=== PATIENT | female | born 1950 | race Caucasian/White ===

== ENCOUNTER 2017-01-22 11:02 | Outpatient (CLI) | payer MEDICARE, OTHER | END 2017-01-22 23:59 | DX: I10 Essential (primary) hypertension (principal); E11.9 Type 2 diabetes mellitus without complications; E78.9 Disorder of lipoprotein metabolism, unspecified; E03.9 Hypothyroidism, unspecified ==

== ENCOUNTER 2017-07-23 10:04 | Outpatient (CLI) | payer MEDICARE, OTHER ==
[2017-07-23 20:15] LABS: ALBUMIN/GLOBULIN RATIO 1.2 (1.0-2.2); BILIRUBIN,TOTAL 1.5 mg/dL (0.2-1.0); BUN - BLOOD UREA NITROGEN 13 mg/dL (6-20); CARBON DIOXIDE - CO2 28 mmol/L (21-32); CHLORIDE 99 mmol/L (101-111); CHOL/HDL RATIO 3.7 (<4.4); CHOLESTEROL 227 mg/dL; CREATININE 0.8 mg/dL (0.4-1.0); GFR - MDRD 72 (>89); GLUCOSE 141 mg/dL (70-100); HDL CHOLESTEROL 61 mg/dL; LDL/HDL RATIO 2.4 (<4.4); POTASSIUM 3.5 mmol/L (3.5-5.0); SODIUM 136 mmol/L (135-145); TRIGLYCERIDES 83 mg/dL; VLDL CHOLESTEROL 17 mg/dL
[2017-07-23 20:41] LABS: HEMOGLOBIN A1C 0.72 g/dL
== END 2017-07-23 10:05 | disposition home or self-care (01) ==
LOC: LAB.WCP 10:04
PROVIDERS: ATTEND Family Medicine
DX: E11.9 Type 2 diabetes mellitus without complications (principal)
CPT/HCPCS: 36415; 80053; 80061; 82043; 83036

== ENCOUNTER 2017-08-17 07:51 | Outpatient (CLI) | payer MEDICARE, OTHER ==
--- NOTE | 2017-08-18 15:27 | Mammography Report ---
DIGITAL SCREENING MAMMOGRAM: 08/17/2017 CLINICAL INDICATION: A 66-year-old nulliparous patient, for screening. COMPARISON: 07/2016, 01/2015, 07/2012, 08/2011. TECHNIQUE: Routine CC and MLO projections were obtained of the breasts. FINDINGS: The breasts again demonstrate scattered fibroglandular densities bilaterally. Punctate, ty pically benign calcifications are present. No suspicious masses, clustered microcalcifications, or re gions of architectural distortion are identified. IMPRESSION: BENIGN FINDINGS. RECOMMENDATION: ROUTINE ANNUAL SCREENING UNLESS OTHERWISE CLINICALLY INDICATED. BIRADS CATEGORY 2-BENIGN FINDINGS. STANDARD QUALIFYING STATEMENTS 1. This examination was reviewed with the aid of Computer-Aided Detection (CAD). 2. A negative or benign imaging report should not delay biopsy if clinically suspicious findings are present. Consider surgical consultation if warranted. More than 5% of cancers are not identified by i maging. 3. Dense breasts may obscure an underlying neoplasm. JOB #: [id number] EXT JOB #:[id number]
== END 2017-08-17 07:52 | disposition home or self-care (01) ==
LOC: DI 07:51
PROVIDERS: ATTEND Family Medicine
DX: Z12.31 Encounter for screening mammogram for malignant neoplasm of breast (principal)
CPT/HCPCS: 77067

== ENCOUNTER 2017-08-17 07:52 | Outpatient (CLI) | payer MEDICARE, OTHER ==
--- NOTE | 2017-08-17 15:59 | DEXA Report ---
DEXA SCAN: 08/17/2017 CLINICAL INDICATION: Postmenopausal. TECHNIQUE: Dual energy x-ray absorptiometry (DXA) was performed on a [employer] system. Regions measured are the AP spine, femoral neck, and, if needed, forearm. COMPARISON: None. In accordance with the International Society for Clinical Densitometry (ISCD) guidelines, data from previous exams may be reanalyzed using current recommendations and techniques. This is done to allow a more accurate basis for comparison with the current study. FINDINGS Lumbar Spine Data As Follows: REGION BMD (g/cm/cm) T-SCORE Z-SCORE L1 1.546 3.5 3.9 L2 1.666 3.9 4.3 L3 1.772 4.8 5.2 L4 1.887 5.7 6.2 TOTAL 1.725 4.5 5.0 NOTE: All evaluable vertebrae are used for classification. Hip Data As Follows: REGION BMD (g/cm/cm) T-SCORE Z-SCORE Neck 1.248 1.5 2.3 TOTAL 1.424 3.3 3.8 NOTE: The femoral neck or total proximal femur, whichever is lowest, is used for classification. IMPRESSION: THE WHO CLASSIFICATION BASED ON THE INTERNATIONAL REFERENCE STANDARD IS NORMAL. FRACTURE RISK: NOT INCREASED. RECOMMENDATION: Patients with diagnosis of osteoporosis or osteopenia should have regular bone mineral density assessment. For those eligible for Medicare, routine testing is allowed once every 2 years. Testing frequency can be increased for patients who have rapidly progressing disease or for those who are receiving medical therapy to restore bone mass. COMMENT: World Health Organization (WHO) definitions for osteoporosis and osteopenia: NORMAL BMD: T-score at -1.0 or higher, fracture risk is low. OSTEOPENIA BMD: T-score between -1.0 and -2.5, fracture risk is increased. OSTEOPOROSIS BMD: T-score at -2.5 or lower, fracture risk high. National Osteoporosis Foundation recommends: 1. Obtain adequate dietary calcium (at least 1200 mg per day) and vitamin D (400 -800 international units per day). 2. Participate, as appropriate, in regular weightbearing and muscle- strengthening exercise. 3. Avoid tobacco use and reduce alcohol and caffeine intake. 4. For more detailed information see the website at www.NOF.org. MTDD
== END 2017-08-17 07:53 | disposition home or self-care (01) ==
LOC: DI 07:52
PROVIDERS: ATTEND Family Medicine
DX: Z78.0 Asymptomatic menopausal state (principal)
CPT/HCPCS: 77080

== ENCOUNTER 2018-07-20 10:41 | Outpatient (CLI) | payer MEDICARE, OTHER ==
[2018-07-20 14:23] LABS: ALBUMIN 3.9 g/dL (3.2-5.5); ALBUMIN/GLOBULIN RATIO 1.2 (1.0-2.2); ALKALINE PHOSPHATASE 37 IU/L (42-121); ALT ALANINE AMINOTRANSFERASE 20 IU/L (10-60); AST ASPARTATE AMINOTRANSFERASE 20 IU/L (10-42); BILIRUBIN,TOTAL 1.5 mg/dL (0.2-1.0); BUN - BLOOD UREA NITROGEN 17 mg/dL (6-20); CALCIUM 9.4 mg/dL (8.5-10.3); CARBON DIOXIDE - CO2 26 mmol/L (21-32); CHLORIDE 100 mmol/L (101-111); CREATININE 0.7 mg/dL (0.4-1.0); GFR - MDRD 83 (>89); GLUCOSE 128 mg/dL (70-100); SODIUM 135 mmol/L (135-145); TOTAL PROTEIN 7.1 g/dL (6.7-8.2)
[2018-07-20 14:37] LABS: HB2 TOTAL 14.3 g/dL; HEMOGLOBIN A1C 0.63 g/dL; HEMOGLOBIN A1C % 6.2 % (4.6-6.2)
== END 2018-07-20 10:42 | disposition home or self-care (01) ==
LOC: LAB.WCP 10:41
PROVIDERS: ATTEND Family Medicine
DX: E11.9 Type 2 diabetes mellitus without complications (principal)
CPT/HCPCS: 36415; 80053; 83036; 84443

== ENCOUNTER 2019-07-13 08:19 | Outpatient (CLI) | payer MEDICARE, OTHER ==
--- NOTE | 2019-07-13 15:32 | Ultrasound Report ---
Reason: HYPERBILIRUBINEMIA Procedure Date: 07/13/2019 Accession Number: [id number] / [id number] Procedure: US - Abdomen Complete CPT Code: FULL RESULT: EXAM: ABDOMEN ULTRASOUND EXAM DATE: 07/13/2019 09:34 AM. CLINICAL HISTORY: Hyperbilirubinemia. COMPARISON: None. TECHNIQUE: Real-time scanning was performed with static images obtained. FINDINGS: Liver: The liver is moderately echogenic diffusely. No evidence for cirrhosis or mass lesion. The right lobe measures 16.0 cm. Main portal vein flow: Hepatopetal. Gallbladder: The gallbladder appears completely packed with stones limiting evaluation. The anterior wall is visualized and appears upper normal in thickness measuring up to approximately 3 mm. Negative sonographic Starr sign. Biliary System: Common bile duct measures 6 mm. No intrahepatic or extrahepatic ductal dilatation. Pancreas: Visualized portion is unremarkable. Kidneys: Right: 11.1 cm longitudinally. Normal. No contour-deforming mass, stones, or hydronephrosis. Left: 10.7 cm longitudinally. No contour-deforming mass, stones, or hydronephrosis. A mid left renal cyst measures 1.4 cm. Spleen: 11.3 cm. Normal in size and echotexture. Aorta and Inferior Vena Cava: Unremarkable. Other: None. IMPRESSION: 1. Gallbladder completely packed with stones but without clear evidence for acute cholecystitis. Mild chronic cholecystitis not excluded. 2. Moderately fatty infiltrated liver. 3. No biliary ductal dilatation or stones visualized. RADIA
== END 2019-07-13 08:20 | disposition home or self-care (01) ==
LOC: DI 08:19
PROVIDERS: ATTEND Family Medicine
DX: K80.20 Calculus of gallbladder without cholecystitis without obstruction (principal); K76.0 Fatty (change of) liver, not elsewhere classified
CPT/HCPCS: 76700

== ENCOUNTER 2019-08-11 10:12 | Outpatient (CLI) | payer MEDICARE, OTHER ==
--- NOTE | 2019-08-14 09:30 | Mammography Report ---
Reason: SCREENING MAMMO Procedure Date: 08/11/2019 Accession Number: [id number] / [id number] Procedure: SURINDER - Screening Mammo w/Steve CPT Code: Final Report FULL RESULT: EXAM: Screening Mammo w/Steve DATE: 08/11/2019 10:45 AM CLINICAL HISTORY: Routine screening. No reported personal history of breast cancer. Family history breast cancer paternal grandmother age 40. TECHNIQUE: (B) - Bilateral CC and MLO views were obtained. COMPARISON: 08/17/2017 through 08/13/2011. PARENCHYMAL PATTERN: (A) - The breasts demonstrate scattered fibroglandular densities bilaterally. FINDINGS: Bilateral breasts: There are no suspicious masses, calcifications, or areas of distortion. Long-term stable focal asymmetry upper outer left breast middle depth. IMPRESSION: Benign findings. BI-RADS category 2. RECOMMENDATION: (ANNUAL) - Recommend routine annual screening mammography. BI-RADS CATEGORY: (2) - Benign Findings. STANDARD QUALIFYING STATEMENTS: 1. This examination was not reviewed with the aid of Computer-Aided Detection (CAD). 2. A negative or benign imaging report should not preclude biopsy if clinically suspicious findings are present. 3. Dense breasts may obscure an underlying neoplasm. 4. This examination was reviewed with the aid of 3D breast imaging (tomosynthesis).
== END 2019-08-11 10:13 | disposition home or self-care (01) ==
LOC: DI 10:12
DX: Z12.31 Encounter for screening mammogram for malignant neoplasm of breast (principal); Z80.3 Family history of malignant neoplasm of breast
CPT/HCPCS: 77063; 77067

== ENCOUNTER 2019-08-17 14:11 | Outpatient (CLI) | payer MEDICARE, OTHER | END 2019-08-17 14:12 | disposition home or self-care (01) | LOC: RT 14:11 | PROVIDERS: ATTEND Internal Medicine Gastroenterology | DX: E11.9 Type 2 diabetes mellitus without complications (principal); E78.5 Hyperlipidemia, unspecified; I10 Essential (primary) hypertension | CPT/HCPCS: 93005 ==

== ENCOUNTER 2019-08-22 08:36 | Day surgery (SDC) | payer MEDICARE, OTHER ==
[2019-08-22] MEDS ORDERED: LACTATED RINGERS 1,000 ML IV ONE (09:02)
[2019-08-22] MEDS ORDERED: MIDAZOLAM 2 MG/2 ML VIAL IVP ONE ×2 (10:29)
[2019-08-22] MEDS ORDERED: fentaNYL 250 MCG/5 ML VIAL IVP ONE (10:29)
[2019-08-22 11:19] VITALS: BP 139/68
== END 2019-08-22 08:37 | disposition home or self-care (01) ==
LOC: SDS 08:36
PROVIDERS: ATTEND Internal Medicine Gastroenterology
PROC: 0DBN8ZZ Excision of Sigmoid Colon, Via Natural or Artificial Opening Endoscopic (ICD-10-PCS; principal; 2019-08-22 09:45)
DX: Z12.11 Encounter for screening for malignant neoplasm of colon (principal); K63.5 Polyp of colon; K57.30 Diverticulosis of large intestine without perforation or abscess without bleeding; E66.01 Morbid (severe) obesity due to excess calories; E11.9 Type 2 diabetes mellitus without complications; I10 Essential (primary) hypertension; Z79.84 Long term (current) use of oral hypoglycemic drugs; Z80.0 Family history of malignant neoplasm of digestive organs; Z79.899 Other long term (current) drug therapy; Z68.41 Body mass index [BMI] 40.0-44.9, adult
CPT/HCPCS: 45380; J7120

== ENCOUNTER 2021-09-10 11:50 | Outpatient (CLI) | payer MEDICARE ==
[2021-09-10 18:27] LABS: BASOPHILS # (AUTO) 0.1 10^3/uL (0.0-0.1); BASOPHILS % (AUTO) 1.2 %; EOSINOPHILS # (AUTO) 0.1 10^3/uL (0.0-0.7); EOSINOPHILS % (AUTO) 1.8 %; HCT - HEMATOCRIT 42.1 % (37.0-47.0); HGB - HEMOGLOBIN 14.5 g/dL (12.0-16.0); LYMPHOCYTES # (AUTO) 1.6 10^3/uL (1.5-3.5); LYMPHOCYTES % (AUTO) 27.8 %; MEAN CORPUSCULAR HEMOGLOBIN 31.9 pg (27.0-31.0); MEAN CORPUSCULAR HGB CONC 34.4 g/dL (32.0-36.0); MEAN CORPUSCULAR VOLUME 92.7 fL (81.0-99.0); MEAN PLATELET VOLUME 9.2 fL (7.9-10.8); MONOCYTES # (AUTO) 0.4 10^3/uL (0.0-1.0); MONOCYTES % (AUTO) 7.6 %; NEUTROPHILS # (AUTO) 3.5 10^3/uL (1.5-6.6); NEUTROPHILS % (AUTO) 61.4 %; PLT - PLATELET COUNT 241 10^3/uL (130-450); RED BLOOD COUNT 4.54 10^6/uL (4.20-5.40); RED CELL DISTRIBUTION WIDTH 13.6 % (12.0-15.0); WHITE BLOOD COUNT 5.7 x10^3/uL (4.8-10.8)
[2021-09-10 18:47] LABS: CREATININE,URINE 264.3 mg/dL; MICROALBUM/CREATININE RATIO,UR 10.6 ug/mg (<30.0); MICROALBUMIN,URINE 2.8 mg/dL (0-300.0)
[2021-09-10 18:57] LABS: ALBUMIN 3.9 g/dL (3.2-5.5); ALBUMIN/GLOBULIN RATIO 1.1 (1.0-2.2); ALKALINE PHOSPHATASE 45 IU/L (42-121); ALT ALANINE AMINOTRANSFERASE 13 IU/L (10-60); AST ASPARTATE AMINOTRANSFERASE 16 IU/L (10-42); BILIRUBIN,TOTAL 1.3 mg/dL (0.2-1.0); BUN - BLOOD UREA NITROGEN 19 mg/dL (6-20); CALCIUM 9.7 mg/dL (8.5-10.3); CARBON DIOXIDE - CO2 27 mmol/L (21-32); CHLORIDE 100 mmol/L (101-111); CHOL/HDL RATIO 4.1 (<4.4); CHOLESTEROL 336 mg/dL; CREATININE 0.8 mg/dL (0.4-1.0); GFR - MDRD 71 (>89); GLUCOSE 110 mg/dL (70-100); HDL CHOLESTEROL 81 mg/dL; LDL CHOLESTEROL,CALCULATED 242 mg/dL; POTASSIUM 3.7 mmol/L (3.5-5.0); SODIUM 137 mmol/L (135-145); TOTAL PROTEIN 7.4 g/dL (6.7-8.2); TRIGLYCERIDES 64 mg/dL; VLDL CHOLESTEROL 13 mg/dL
[2021-09-10 19:03] LABS: THYROID STIMULATING HORMONE 5.89 uIU/mL (0.34-5.60)
[2021-09-10 20:10] LABS: FREE T4 (FREE THYROXINE) 0.95 ng/dL (0.58-1.64)
[2021-09-10 21:06] LABS: ESTIMATED AVERAGE GLUCOSE 128 mg/dL (70-100); HEMOGLOBIN A1c% 6.1 % (4.27-6.07)
== END 2021-09-10 11:51 | disposition home or self-care (01) ==
LOC: LAB.N 11:50
PROVIDERS: ATTEND Family Medicine
DX: E11.9 Type 2 diabetes mellitus without complications (principal); E03.9 Hypothyroidism, unspecified
CPT/HCPCS: 36415; 80053; 80061; 82043; 82570; 83036; 83721; 84439; 84443; 85025

== ENCOUNTER 2021-09-10 12:01 | Outpatient (CLI) | payer MEDICARE ==
--- NOTE | 2021-09-10 16:37 | XRAY Report ---
PROCEDURE: Knee 4 View RT INDICATIONS: R KNEE PX TECHNIQUE: 4 views of the right knee(s) were acquired. COMPARISON: None. FINDINGS: BONES/JOINT: No acute, displaced fracture or dislocation. Small suprapatellar joint effusion. Advance d narrowing of the lateral compartment joint space loss with osteophytosis and sclerosis of the oppos ing articular surfaces. The medial and patellofemoral compartment joint spaces are essentially mainta ined. Tricompartment and intercondylar region osteophytosis. SOFT TISSUES: No significant abnormality. IMPRESSION: 1.Advanced lateral compartment osteoarthrosis. Reviewed by: Juarez Swain MD on 09/10/2021 4:35 PM PST Approved by: Juarez Swain MD on 09/10/2021 4:35 PM [facility] Station ID: [id number]
== END 2021-09-10 12:02 | disposition home or self-care (01) ==
LOC: DI.N 12:01
PROVIDERS: ATTEND Family Medicine
DX: M17.11 Unilateral primary osteoarthritis, right knee (principal); E11.9 Type 2 diabetes mellitus without complications; E03.9 Hypothyroidism, unspecified
CPT/HCPCS: 36415; 80053; 80061; 82043; 82570; 83036; 83721; 84439; 84443; 85025

== ENCOUNTER 2022-04-26 09:13 | Emergency (ER) | payer MEDICARE ==
--- NOTE | 2022-04-26 09:47 | ED Physician Documentation ---
PD HPI ABD PAIN - Stated complaint Stated Complaint: ABD PAIN X 4 DAYS - Chief complaint Chief Complaint: Abd Pain - History obtained from History obtained from: Patient - History of Present Illness Timing - onset: How many days ago (4) Timing - duration: Days (4) Timing - details: Abrupt onset, Still present, Waxing and waning Quality: Cramping, Aching, Pain Location: All over / everywhere (pain location has roamed, with current pain this morning mid abd to lower. Was upper abd to begin.) Improved by: Laying still, BM. No: Eating Worsened by: Moving. No: Eating Associated symptoms: Nausea, Vomiting, Diarrhea (watery without blood/mucous.), Loss of appetite. No: Dysuria, Hematuria Similar symptoms before: Has not had sx before Recently seen: Not recently seen Review of Systems Constitutional: denies: Fever, Chills, Myalgias Nose: denies: Rhinorrhea / runny nose, Congestion Throat: denies: Sore throat Cardiac: denies: Chest pain / pressure Respiratory: denies: Cough GI: reports: Abdominal Pain, Nausea, Vomiting (few times the first 2 days, now just nauseated.), Diarrhea. denies: Constipation, Bloody / black stool : denies: Dysuria Skin: denies: Rash, Lesions Musculoskeletal: denies: Back pain Neurologic: denies: Generalized weakness, Focal weakness, Numbness, Near syncope, Altered mental status, Headache PD PAST MEDICAL HISTORY - Past Medical History Cardiovascular: Hypertension Respiratory: None Endocrine/Autoimmune: Type 2 diabetes, HyPOthyroidism GI: GERD : None HEENT: None Psych: Claustrophobia Musculoskeletal: None Derm: Rosacea - Past Surgical History General: Colonoscopy Ortho: Other - Present Medications Home Medications: Ambulatory Orders Medication Instructions Recorded Confirmed Ascorbic Acid [Vitamin C] 1,000 mg PO DAILY 01/02/16 04/26/22 Cholecalciferol (Vitamin D3) 1,000 unit PO DAILY 01/02/16 04/26/22 [Vitamin D] Losartan Potassium 25 mg PO DAILY 01/02/16 04/26/22 Diphenoxylate/Atropine [Lomotil] 1 each PO QID PRN #12 tablet 04/26/22 HYDROcod/ACETAM 5/325 [[place] 5/325] 1 ea PO Q6H PRN #12 tablet 04/26/22 Ondansetron Odt [Zofran] 4 mg TL Q6H PRN #10 tablet 04/26/22 - Allergies Allergies/Adverse Reactions: Allergies Allergy/AdvReac Type Severity Reaction Status Date / Time Iodine and Iodide Containing Allergy Nausea Verified 04/26/22 09:27 Produc Sulfa (Sulfonamide Allergy Rash Verified 04/26/22 09:27 Antibiotics) PD ED PE NORMAL - Vitals Vital signs reviewed: Yes - General General: Alert and oriented X 3, No acute distress, Well developed/nourished - HEENT HEENT: Pharynx benign - Neck Neck: Supple, no meningeal sign, No adenopathy - Cardiac Cardiac: RRR, No murmur - Respiratory Respiratory: Clear bilaterally - Abdomen Abdomen: Normal bowel sounds, Soft, Non distended, No organomegaly, Other (tender mid to lower abd more to the right. No percussion nor rebound tenderness. ) - Female Female : Deferred - Rectal Rectal: Deferred - Back Back: No CVA TTP - Derm Derm: Normal color, Warm and dry - Extremities Extremities: Normal ROM s pain, No edema, No calf tenderness / cord - Neuro Neuro: Alert and oriented X 3, No motor deficit, Normal speech Results - Vitals Vitals: Vital Signs - 24 hr 04/26/22 04/26/22 09:24 14:13 Temperature 37.1 C Heart Rate 110 H 98 Respiratory 19 17 Rate Blood Pressure 138/69 H 150/80 H O2 Saturation 96 98 Oxygen O2 Source Room air - Labs Labs: Laboratory Tests 04/26/22 04/26/22 04/26/22 09:50 09:50 09:50 WBC 13.2 H RBC 4.38 Hgb 13.6 Hct 40.3 MCV 92.0 MCH 31.1 H MCHC 33.7 RDW 14.1 Plt Count 264 MPV 8.7 Neut # (Auto) 11.7 H Lymph # (Auto) 0.7 L Traill # (Auto) 0.6 Eos # (Auto) 0.0 Baso # (Auto) 0.0 Absolute Nucleated RBC 0.00 Nucleated RBC % 0.0 Sodium 138 Potassium 3.3 L Chloride 98 L Carbon Dioxide 26 Anion Gap 14.0 H BUN 28 H Creatinine 1.1 H Estimated GFR (MDRD) 49 L Glucose 154 H Calcium 9.8 Total Bilirubin 3.4 H AST 27 ALT 24 Alkaline Phosphatase 77 Total Protein 7.9 Albumin 3.4 Globulin 4.5 H Albumin/Globulin Ratio 0.8 L Lipase 25 Urine Color DARK YELLOW Urine Clarity HAZY Urine pH Ur Specific Goodell Urine Protein Urine Glucose (UA) NEGATIVE Urine Ketones Urine Occult Blood Urine Nitrite Urine Bilirubin NEGATIVE Urine Urobilinogen Ur Leukocyte Esterase NEGATIVE Urine RBC 0-5 Urine WBC 0-3 Ur Squamous Epith Cells RARE Squamous Urine Bacteria Moderate H Urine Casts 0-2 Granular Casts Urine Mucus Moderate Strands Ur Microscopic Review INDICATED Urine Culture Comments NOT INDICATED - Rads (name of study) abd/pelvic CT Radiology: Prelim report reviewed (gallstones with one in neck. No signs of cholecystitis. left ovarian cyst. IUD present. ), See rad report abd U/S Radiology: Prelim report reviewed (gallstones without cholecystitis. CBD 7 mm, slightly enlarged.No stones visible. ), See rad report PD MEDICAL DECISION MAKING - ED course Complexity details: reviewed results (CT showing gallstones without obvious inflammatory changes. Recommeded U/S. U/S showing stones without signs of cholecystitis. ovarian cyst, unusual for age. IUD in place which patient thought was not still present, surprise to her. ), re-evaluated patient (her pain is significantly improved to minimal with meds in ER. ), considered differential (consider gallbladder process, diverticulitis, central appy, other process. ), d/w patient Departure - Departure Disposition: 01 Home, Self Care Clinical Impression: Nausea vomiting and diarrhea, Gallstones Abdominal pain Qualifiers: Abdominal location: generalized Qualified Code(s): R10.84 - Generalized abdominal pain Ovarian cyst Qualifiers: Laterality: left Qualified Code(s): N83.202 - Unspecified ovarian cyst, left side Condition: Stable Record reviewed to determine appropriate education?: Yes Follow-Up: Raimundo Velazquez MD [Provider Admit Priv/Credential] - Prescriptions: Diphenoxylate/Atropine [Lomotil] 1 each PO QID PRN #12 tablet PRN Reason: Diarrhea HYDROcod/ACETAM 5/325 [[place] 5/325] 1 ea PO Q6H PRN #12 tablet PRN Reason: Pain Ondansetron Odt [Zofran] 4 mg TL Q6H PRN #10 tablet PRN Reason: Nausea / Vomiting Comments: Your CT and ultrasound did show signs of gallstones but no inflammation or swelling of the gallbladder so just incidental finding of gallstones without cholecystitis. This is less likely, unlikely to be the cause of your pain. Also incidental findings on your scan were a left ovarian cyst and an IUD in place. I would suggest following up with gynecology in the near future to discuss any further treatments or evaluations needed for these. At this point I would presume a gastroenteritis ("stomach flu or food related). Small frequent fluids and bland food. Ondansetron if needed for nausea. Lomotil if needed for diarrhea. Add Tylenol if needed for pains or hydrocodone if needed for worse pain. I would anticipate improvement over the next day or 2. Recheck if not improving over the next few days and return if worse. I sent your prescription to [facility] in [place]. I am prescribing a short course of narcotic pain medication for you. These are potentially dangerous and addictive medications that should be used carefully. These medications may constipate you. Take an sqob-iui-rdzdske stool softener such as docusate twice daily with plenty of water while taking these medications. If you go 24 hours without a bowel movement, take mjuy-bcz-pinrmec MiraLAX, per package instructions. Do not drink or drive while taking these medications. If you received narcotic or sedating medications while in the emergency department do not drive for 24 hours. Store this medication in a safe, secure place and out of reach of children. It is a violation of federal law to give or sell this medication to another person or to use in a manner other than prescribed. The ED will not refill narcotic prescriptions, including prescriptions lost or stolen. You can dispose of unwanted medications at the [facility] office or at several pharmacies such as [facility]. Discharge Date/Time: 04/26/22 14:14
[2022-04-26 09:56] LABS: BASOPHILS % (AUTO) 0.3 %; EOSINOPHILS % (AUTO) 0.2 %; HCT - HEMATOCRIT 40.3 % (37.0-47.0); HGB - HEMOGLOBIN 13.6 g/dL (12.0-16.0); LYMPHOCYTES # (AUTO) 0.7 10^3/uL (1.5-3.5); LYMPHOCYTES % (AUTO) 5.2 %; MEAN CORPUSCULAR HEMOGLOBIN 31.1 pg (27.0-31.0); MEAN CORPUSCULAR HGB CONC 33.7 g/dL (32.0-36.0); MEAN PLATELET VOLUME 8.7 fL (7.9-10.8); MONOCYTES # (AUTO) 0.6 10^3/uL (0.0-1.0); MONOCYTES % (AUTO) 4.8 %; NEUTROPHILS # (AUTO) 11.7 10^3/uL (1.5-6.6); PLT - PLATELET COUNT 264 10^3/uL (130-450); RED BLOOD COUNT 4.38 10^6/uL (4.20-5.40); RED CELL DISTRIBUTION WIDTH 14.1 % (12.0-15.0); WHITE BLOOD COUNT 13.2 x10^3/uL (4.8-10.8)
[2022-04-26 10:04] LABS: GLUCOSE, URINE (UA) NEGATIVE (NEGATIVE); LEUKOCYTE ESTERASE, URINE NEGATIVE (NEGATIVE)
[2022-04-26 10:11] LABS: ALBUMIN 3.4 g/dL (3.2-5.5); ALBUMIN/GLOBULIN RATIO 0.8 (1.0-2.2); BILIRUBIN,TOTAL 3.4 mg/dL (0.2-1.0); BILIRUBIN,URINE NEGATIVE (NEGATIVE); CALCIUM 9.8 mg/dL (8.5-10.3); CLARITY,URINE HAZY (CLEAR); CREATININE 1.1 mg/dL (0.4-1.0); ICTOTEST,URINE NEGATIVE; POTASSIUM 3.3 mmol/L (3.5-5.0); TOTAL PROTEIN 7.9 g/dL (6.7-8.2)
[2022-04-26 10:18] LABS: BACTERIA,URINE Moderate /HPF (None Seen); MUCUS,URINE Moderate Strands; RBC,URINE 0-5 /HPF (0-5); SQUAMOUS EPITHELIAL CELL,UR RARE Squamous (<= Few); WBC,URINE 0-3 /HPF (0-5)
[2022-04-26] MEDS ORDERED: KETOROLAC 15 MG/ML VIAL IVP STA (10:36)
[2022-04-26] MEDS ORDERED: ONDANSETRON 4 MG/2 ML VIAL IVP STA (10:36)
[2022-04-26] MEDS ORDERED: SODIUM CHLORIDE 0.9% 1,000 ML IV STA (10:36)
[2022-04-26] MEDS ORDERED: HYDROmorphone 1 MG/ML CARPUJECT IVP STA (10:36)
--- NOTE | 2022-04-26 11:58 | CT Report ---
PROCEDURE: Abdomen/Pelvis WO INDICATIONS: abd pain 3 days, generalized TECHNIQUE: Noncontrast 5 mm thick sections acquired from the diaphragms to the symphysis. 5 mm coronal and sagi ttal reformats were then performed. For radiation dose reduction, the following was used: automated exposure control, adjustment of mA and/or kV according to patient size. COMPARISON: Correlation is made with the prior abdominal ultrasound, 07/13/2019 FINDINGS: Image quality: Excellent. ABDOMEN: Lung bases: Dependent streaky atelectasis versus scarring can be seen. Heart size is normal. Solid organs: Liver and spleen are normal in size. Gallbladder demonstrates layering gallstones. There is also a gallstone seen within the gallbladder n bettie, as demonstrated on series 3 image 28 and on 6 image 24. No pamela gallbladder wall thickening or pericholecystic fluid can be seen. Pancreas is normal in contours. No adrenal nodules. Kidneys are normal in size, without hydronephro sis or nephrolithiasis. Peritoneum and bowel: Unenhanced bowel loops demonstrate normal wall thickness and caliber. No free fluid or air. Nodes and vessels: No retroperitoneal or mesenteric adenopathy by size criteria. Aorta and inferior vena cava are normal in caliber. Miscellaneous: No ventral hernias. PELVIS: Genitourinary: Bladder wall thickness is normal. An IUD is seen at the expected location. Within th e left adnexal region, there is a mildly complex cystic structure that measures up to 5.7 cm. Miscell aneous: No inguinal hernias or adenopathy. Bones: No suspicious bony lesions. No vertebral body compression fractures. Age-appropriate degene rative changes are seen. IMPRESSION: There is a gallstone seen within the gallbladder neck. Additional gallstones are seen la yering dependently within the gallbladder. No additional CT findings of cholecystitis are seen. If cl inically appropriate, please consider a follow-up abdominal ultrasound for further evaluation. There is a complex left ovarian hemorrhagic cyst measuring up to 5.6 cm. In a patient of this age, co ncern is raised for cystic neoplasm. When clinically appropriate, please consider dedicated pelvic ul trasound for further evaluation. Incidental note is made of: IUD Reviewed by: Catracho Robison MD on 04/26/2022 10:57 AM AKDT Approved by: Catracho Robison MD on 04/26/2022 10:57 AM [facility] Station ID: [id number]
[2022-04-26] MEDS ORDERED: DIPHENOX/ATROPINE 2.5/0.025 MG TABLET PO STA (13:44)
[2022-04-26] MEDS ORDERED: HYDROcod/ACETAM 5/325 MG TABLET PO STA (14:00)
[2022-04-26 14:13] VITALS: BP 150/80
--- NOTE | 2022-04-26 14:30 | Ultrasound Report ---
PROCEDURE: Abdomen Limited INDICATIONS: abd pain, CT shows gallstones; suggests US. TECHNIQUE: Real-time focused scanning was performed of the abdomen, with image documentation. COMPARISON: CT abdomen pelvis performed on the same day FINDINGS: The visible proximal pancreas is normal without ductal dilatation. The liver demonstrates a nodular margin and coarse parenchymal echotexture. Portal vein demonstrates appropriate direction o f flow. The gallbladder is nearly filled with echogenic, nonshadowing material. The wall is normal thickness at 2.5 mm. No pericholecystic fluid or sonographic Starr's sign per the technologist. The common beckie t is normal caliber at 6.6 mm maximally. There is a stone in the valencia hepatis measuring 1.0 cm. This is most likely within the cystic duct. No visible choledocholithiasis on this exam. The right kidney has normal size measuring 10.5 cm in length. The cortex is of normal thickness. No h ydronephrosis. IMPRESSION: 1. Cholelithiasis and possible cystic duct stone. 2. No sonographic findings of acute cholecystitis. 3. Coarse hepatic parenchyma suggestive of intrinsic liver disease. Correlate with LFTs. Reviewed by: Elva Cano MD on 04/26/2022 2:29 PM PDT Approved by: Elva Cano MD on 04/26/2022 2:29 PM PDT Station ID: [id number]
== END 2022-04-26 14:14 | disposition home or self-care (01) ==
LOC: ED 09:13
DX: K80.20 Calculus of gallbladder without cholecystitis without obstruction (principal); N83.202 Unspecified ovarian cyst, left side; I10 Essential (primary) hypertension; E11.9 Type 2 diabetes mellitus without complications
CPT/HCPCS: 36415; 74176; 76705; 80053; 81001; 83690; 85025; 96374; 99284; A9270; J1170; 81003; 87086

== ENCOUNTER 2022-08-11 09:41 | Outpatient (CLI) | payer MEDICARE ==
--- NOTE | 2022-08-11 16:08 | Ultrasound Report ---
PROCEDURE: Pelvic w/Transvaginal INDICATIONS: OVARIAN CYST TECHNIQUE: Real-time scanning was performed of the pelvic organs, with image documentation. Additional endovagi nal scanning was necessary due to incomplete visualization of the adnexal and endometrial structures by transabdominal scanning. COMPARISON: CT abdomen and pelvis, 04/26/2022. FINDINGS: Uterus: Uterus is anteverted and normal in size at 6.8 x 2.8 x 4.6 cm. The myometrium is homogeneou s. The endometrium measures 3.1 mm in combined thickness. There is an IUD in the endometrium. Ovaries: The right ovary is seen on transabdominal scanning only and appears grossly normal measurin g 1.6 x 1.1 x 1.4 cm, with a calculated ovarian volume of 1.1 cc. The left ovary measures 4.7 x 3.0 x 3.2 cm, with a calculated ovarian volume of 23.5 cc. There is a 2.8 x 2.2 x 2.1 cm complex cyst in the left ovary. There is a 0.8 cm hypoechoic nodule in left ovary adjacent to the cyst. Less than 12 follicles can be seen in each ovary. Suspect left hydrosalpinx. Other: No pathologic free abdominal or pelvic fluid. IMPRESSION: 1. There is a complex cyst in the left orbit measuring 2.8 x 2.2 x 2.1 cm. Adjacent to the cyst, ther e is a 0.8 cm hyperechoic nodule. Recommend a short-term follow-up ultrasound in 6 weeks. Alternative ly, a gynecological MRI would be helpful. 2. Questions hydrosalpinx on the left. 3. IUD in uterus. Reviewed by: Javier Gustafson MD on 08/11/2022 4:07 PM PST Approved by: Javier Gustafson MD on 08/11/2022 4:07 PM PST Station ID: [id number]
== END 2022-08-11 09:42 | disposition home or self-care (01) ==
LOC: DI 09:41
PROVIDERS: ATTEND Obstetrics & Gynecology
DX: N83.202 Unspecified ovarian cyst, left side (principal); Z30.431 Encounter for routine checking of intrauterine contraceptive device

== ENCOUNTER 2022-08-14 09:06 | Outpatient (CLI) | payer MEDICARE | END 2022-08-14 09:07 | disposition home or self-care (01) | LOC: LAB.N 09:06 | PROVIDERS: ATTEND Obstetrics & Gynecology | DX: N83.202 Unspecified ovarian cyst, left side (principal) | CPT/HCPCS: 36415; 86304 ==

== ENCOUNTER 2022-11-10 12:59 | Outpatient (CLI) | payer MEDICARE ==
--- NOTE | 2022-11-10 17:45 | Ultrasound Report ---
PROCEDURE: Pelvic w/Transvaginal INDICATIONS: OVARIAN CYST TECHNIQUE: Real-time scanning was performed of the pelvic organs, with image documentation. Additional endovagi nal scanning was necessary due to incomplete visualization of the adnexal and endometrial structures by transabdominal scanning. COMPARISON: Noncontrast CT of the abdomen and pelvis dated 04/26/2022, pelvic ultrasound dated 022. FINDINGS: Uterus: Uterus is anteverted and normal in size at 5.9 x 2.9 x 3.7 cm. The myometrium is heterogene ous. The endometrium measures 3.2 mm in combined thickness. Ovaries: The right ovary is not visualized, possibly secondary to involutional.. The left ovary rabia sures 4.1 x 2.9 x 3.4 cm, with a calculated ovarian volume of 21.1 cc. Again noted is a complex cyst of the left ovary. On the CT, it was described as measuring up to 5.7 cm. On the follow-up ultrasound , it was noted to be 2.8 x 2.2 x 2.1 cm. It now measures 2.1 x 1.4 x 1.9 cm. Other: No pathologic free abdominal or pelvic fluid. IMPRESSION: Interval decrease in size of a complex left adnexal cystic structure in the postmenopaus al female. Comment: Recommend follow-up ultrasound in 12 months. Reviewed by: Cristobal Azevedo MD on 11/10/2022 5:44 PM PST Approved by: Cristobal Azevedo MD on 11/10/2022 5:44 PM PST Station ID: [id number]
== END 2022-11-10 13:00 | disposition home or self-care (01) ==
LOC: DI 12:59
PROVIDERS: ATTEND Obstetrics & Gynecology
DX: N83.202 Unspecified ovarian cyst, left side (principal)

== ENCOUNTER 2024-02-28 09:48 | Emergency (ER) | payer MEDICARE ==
[2024-02-28 10:29] LABS: BILIRUBIN,URINE MODERATE (NEGATIVE); GLUCOSE, URINE (UA) NEGATIVE (NEGATIVE); KETONES,URINE (UA) 40 mg/dL (NEGATIVE); LEUKOCYTE ESTERASE, URINE TRACE (NEGATIVE); NITRITE,URINE NEGATIVE (NEGATIVE); OCCULT BLOOD,URINE SMALL (NEGATIVE); PH,URINE 6.5 PH (5.0-7.5); PROTEIN,URINE 100 mg/dL (NEGATIVE); UROBILINOGEN,URINE 2 E.U./dL (NORMAL)
[2024-02-28 10:31] LABS: CLARITY,URINE CLEAR (CLEAR)
[2024-02-28 10:38] LABS: BASOPHILS % (AUTO) 0.5 %; EOSINOPHILS % (AUTO) 0.1 %; HCT - HEMATOCRIT 43.8 % (37.0-47.0); HGB - HEMOGLOBIN 14.7 g/dL (12.0-16.0); LYMPHOCYTES # (AUTO) 1.1 10^3/uL (1.5-3.5); LYMPHOCYTES % (AUTO) 12.9 %; MEAN CORPUSCULAR HEMOGLOBIN 29.9 pg (27.0-31.0); MEAN CORPUSCULAR HGB CONC 33.6 g/dL (32.0-36.0); MEAN CORPUSCULAR VOLUME 89.2 fL (81.0-99.0); MEAN PLATELET VOLUME 8.5 fL (7.9-10.8); MONOCYTES # (AUTO) 0.5 10^3/uL (0.0-1.0); NEUTROPHILS # (AUTO) 6.7 10^3/uL (1.5-6.6); NEUTROPHILS % (AUTO) 80.3 %; PLT - PLATELET COUNT 202 10^3/uL (130-450); RED BLOOD COUNT 4.91 10^6/uL (4.20-5.40); RED CELL DISTRIBUTION WIDTH 13.2 % (12.0-15.0); WHITE BLOOD COUNT 8.4 x10^3/uL (4.8-10.8)
[2024-02-28 10:46] LABS: BACTERIA,URINE Many /HPF (None Seen); EPITHELIAL CELLS,UR RARE Transitional /HPF (<= Few); MUCUS,URINE Marked Strands; RBC,URINE 0-5 /HPF (0-5); SQUAMOUS EPITHELIAL CELL,UR MOD Squamous (<= Few); WBC,URINE >25 /HPF (0-5)
[2024-02-28 10:47] LABS: CASTS, URINE 6-10 Hyaline Casts /LPF
[2024-02-28 10:55] LABS: ALBUMIN 4.1 g/dL (3.2-5.5); ALBUMIN/GLOBULIN RATIO 1.4 (1.0-2.2); BILIRUBIN,TOTAL 1.7 mg/dL (0.2-1.0); CALCIUM 10.1 mg/dL (8.5-10.3); CREATININE 0.7 mg/dL (0.6-1.3); POTASSIUM 3.1 mmol/L (3.5-4.5); TOTAL PROTEIN 7.1 g/dL (6.4-8.9)
--- NOTE | 2024-02-28 11:06 | ED Physician Documentation ---
PD HPI ABD PAIN - Stated complaint Stated Complaint: ABD PX/N/V/D - Chief complaint Chief Complaint: Abd Pain - History obtained from History obtained from: Patient - History of Present Illness Timing - onset: How many days ago (2) Timing - duration: Days (2) Timing - details: Abrupt onset, Still present, Waxing and waning Quality: Cramping, Aching, Pain Location: RUQ, Epigastric Radiation: Upper back. No: Right shoulder Improved by: No: Eating, Vomiting Worsened by: Eating. No: Breathing Associated symptoms: Nausea, Vomiting. No: Fever, Diarrhea (had couple loose stools without blood/melena, not diarrhea per se.), Constipation Similar symptoms before: Diagnosis (abd pain few years ago with US shoiwng gallstones, some distension. Not surgical at the time.) Recently seen: Not recently seen Review of Systems Constitutional: denies: Fever, Chills Nose: denies: Rhinorrhea / runny nose, Congestion Throat: denies: Sore throat Respiratory: denies: Cough PD PAST MEDICAL HISTORY - Past Medical History Past Medical History: Yes Cardiovascular: Hypertension Respiratory: None Neuro: None Endocrine/Autoimmune: Type 2 diabetes, HyPOthyroidism GI: GERD, Other (known gallstones but has not had pains from them for several years. ) : None HEENT: None Psych: Claustrophobia Musculoskeletal: None Derm: Rosacea - Past Surgical History Past Surgical History: Yes General: Colonoscopy Ortho: Other - Present Medications Home Medications: Ambulatory Orders Medication Instructions Recorded Confirmed Ascorbic Acid [Vitamin C] 1,000 mg PO DAILY 01/02/16 04/26/22 Cholecalciferol (Vitamin D3) 1,000 unit PO DAILY 01/02/16 04/26/22 [Vitamin D] Losartan Potassium 25 mg PO DAILY 01/02/16 04/26/22 Diphenoxylate/Atropine [Lomotil] 1 each PO QID PRN #12 tablet 04/26/22 HYDROcod/ACETAM 5/325 [[place] 5/325] 1 ea PO Q6H PRN #12 tablet 04/26/22 Ondansetron Odt [Zofran] 4 mg TL Q6H PRN #10 tablet 04/26/22 HYDROcod/ACETAM 5/325 [[place] 5/325] 1 ea PO Q6H PRN #18 tablet 02/28/24 Naproxen 500 mg PO BID #15 tab 02/28/24 Ondansetron Odt [Zofran] 4 mg TL Q6H PRN #10 tablet 02/28/24 - Allergies Allergies/Adverse Reactions: Allergies Allergy/AdvReac Type Severity Reaction Status Date / Time Iodine and Iodide Containing Allergy Nausea Verified 02/28/24 23:48 Produc Sulfa (Sulfonamide Allergy Rash Verified 02/28/24 23:48 Antibiotics) - Social History Does the pt smoke?: No Smoking Status: Never smoker Does the pt drink ETOH?: No Does the pt have substance abuse?: No - Immunizations Immunizations are current?: No Immunizations: Other immun not current - POLST Patient has POLST: No PD ED PE NORMAL - Vitals Vital signs reviewed: Yes - General General: Alert and oriented X 3, Well developed/nourished, Other (appears in pain RUQ. ) - Neck Neck: Supple, no meningeal sign - Cardiac Cardiac: RRR, No murmur - Respiratory Respiratory: Clear bilaterally - Abdomen Abdomen: Normal bowel sounds, Soft, Non distended, No organomegaly (markedly tender URQ with percussion and local rebound. Lower abd not tender. ) - Female Female : Deferred - Rectal Rectal: Deferred - Back Back: No CVA TTP - Derm Derm: Normal color, No rash Results - Vitals Vitals: Vital Signs - 24 hr 02/28/24 02/28/24 02/28/24 09:58 12:03 14:00 Temperature 37 C Heart Rate 95 84 81 Respiratory 18 20 20 Rate Blood Pressure 175/81 H 176/70 H 159/72 H O2 Saturation 97 99 97 02/28/24 02/28/24 15:05 15:12 Temperature Heart Rate 80 89 Respiratory 20 18 Rate Blood Pressure 157/69 H 176/91 H O2 Saturation 96 95 Oxygen O2 Source Room air - Labs Labs: Laboratory Tests 02/28/24 02/28/24 02/28/24 10:16 10:30 10:30 WBC 8.4 RBC 4.91 Hgb 14.7 Hct 43.8 MCV 89.2 MCH 29.9 MCHC 33.6 RDW 13.2 Plt Count 202 MPV 8.5 Neut # (Auto) 6.7 H Lymph # (Auto) 1.1 L [place] # (Auto) 0.5 Eos # (Auto) 0.0 Baso # (Auto) 0.0 Absolute Nucleated RBC 0.00 Nucleated RBC % 0.0 Sodium 134 L Potassium 3.1 L Chloride 97 L Carbon Dioxide 29 Anion Gap 8.0 BUN 13 Creatinine 0.7 Estimated GFR (MDRD) 82 L Glucose 176 H Calcium 10.1 Total Bilirubin 1.7 H AST 14 ALT 15 Alkaline Phosphatase 56 Total Protein 7.1 Albumin 4.1 Globulin 3.0 Albumin/Globulin Ratio 1.4 Lipase 18 Urine Color DARK YELLOW Urine Clarity CLEAR Urine pH 6.5 Ur Specific [place] 1.025 Urine Protein 100 H Urine Glucose (UA) NEGATIVE Urine Ketones 40 H Urine Occult Blood SMALL H Urine Nitrite NEGATIVE Urine Bilirubin MODERATE H Urine Urobilinogen 2 H Ur Leukocyte Esterase TRACE H Urine RBC 0-5 Urine WBC >25 H Ur Epithelial Cells RARE Transitional Ur Squamous Epith Cells MOD Squamous H Urine Bacteria Many H Urine Casts 6-10 Hyaline Casts Urine Mucus Marked Strands Ur Microscopic Review INDICATED Urine Culture Comments NOT INDICATED - Rads (name of study) ruq US Relevant Findings:: Other (discussed with US tech. Findings of distended gallbladder, stones/sludge, wall thickening and surrounding fluid. No dilation of CBD. C/W acute cholecystitis. ) PD Medical Decision Making - ED course Complexity details: re-evaluated patient (patient states her pain has improved considerably. Abd exam exhaust tender RUQ but much less. No peritoneal findings per se in rest of abd. Pt prefers to try going home and nonsurgical. She prefers not hospitalized at this time. Given the improvement in pain and able to PO, then could try. ), considered differential, d/w patient Drug Therapy Requiring Monitoring for Toxicity: given IV fluids, zofran, toradol and diladuid with good improvement in symptoms. ED course: Pt with US findings of cholecystitis. normal WBC and no signs of ascending inflammation. Normal LFTs and lipase. Prior episode similar was few years ago. We discussed options of surgical consultation, admission, and potential surgery, versus trying nonsurgical either admitted for fluids/meds or home. She strongly prefers going home. She will though return if worse again or other symptosm such as fever, lightheaded, more generalized pain, etc. If returns, would most likely admit for meds/pain control and presume surgery. Departure - Departure Disposition: Home, Self Care Clinical Impression: Right upper quadrant abdominal pain, Acute cholecystitis Condition: Stable Instructions: ED Gallbladder Infec Conf Follow-Up: [facility] [Provider Group] Ami Carroll PA-C [Primary Care Provider] - Prescriptions: Naproxen 500 mg PO BID #15 tab HYDROcod/ACETAM 5/325 [[place] 5/325] 1 ea PO Q6H PRN #18 tablet PRN Reason: Pain Ondansetron Odt [Zofran] 4 mg TL Q6H PRN #10 tablet PRN Reason: Nausea / Vomiting Comments: Clear liquid diet only for the next day or 2. Your ultrasound shows inflammation of the gallbladder and gallstones present. This would be termed cholecystitis which means inflammation of the gallbladder. At this point your white count is normal and your liver and pancreas enzymes are normal and no fever. Your pain has improved considerably fairly easily with some pain medicine. I do not feel that it is infected at this time. It could ramp up and become more so. In discussion, you would like to try going home and see if this quiets down. I would suggest a combination of some anti-inflammatories such as naproxen twice daily with water. You could use some antacids if needed periodically if your stomach feels upset. Ondansetron if needed for nausea. Add Tylenol 500 to 650 mg every 4-6 hours for pain as well. In addition if needed I prescribed hydrocodone/acetaminophen as a stronger pain medicine. See how you feel over the next couple of days. If you have persisting pain but tolerable with the pain medicine, then follow-up with your primary care or the surgical office or return to the ER. If your pain is uncontrolled or you have persistent vomiting bloody stool or fevers, then return to the ER as that would indicate worsening inflammation of the gallbladder and may dictate needing more urgent surgery. If you get feeling better without any pain, I would still suggest calling for follow-up appointment with the surgical office to have a discussion about the pros and cons of gallbladder surgery given the event. I sent your prescription to your preferred pharmacy. I am prescribing a short course of narcotic pain medication for you. These are potentially dangerous and addictive medications that should be used carefully. These medications may constipate you. Take an [id number] stool softener such as docusate twice daily with plenty of water while taking these medications. If you go 24 hours without a bowel movement, take [id number] MiraLAX, per package instructions. Do not drink or drive while taking these medications. If you received narcotic or sedating medications while in the emergency department do not drive for 24 hours. Store this medication in a safe, secure place and out of reach of children. It is a violation of federal law to give or sell this medication to another person or to use in a manner other than prescribed. The ED will not refill narcotic prescriptions, including prescriptions lost or stolen. You can dispose of unwanted medications at the [facility]'s office or at several pharmacies such as [facility]. Forms: PCP List Discharge Date/Time: 02/28/24 15:10
[2024-02-28] MEDS: SODIUM CHLORIDE 0.9% 1,000 ML IV STA (12:50)
[2024-02-28] MEDS: KETOROLAC 15 MG/ML VIAL IVP STA (12:50)
[2024-02-28] MEDS: ONDANSETRON 4 MG/2 ML VIAL IVP STA (12:50)
[2024-02-28] MEDS: HYDROmorphone 1 MG/ML CARPUJECT IVP STA (12:51)
[2024-02-28] MEDS: HYDROmorphone 0.5 MG/0.5 ML SYRINGE IVP STA (14:18)
--- NOTE | 2024-02-28 14:24 | Ultrasound Report ---
PROCEDURE: Abdomen Limited INDICATIONS: RUQ pain 2 days, increasing TECHNIQUE: Real-time focused scanning was performed of the abdomen, with image documentation. COMPARISONS: Abdominal ultrasound 04/26/2022, CT 04/26/2022. FINDINGS: Liver: Liver is normal in size and homogeneous in echotexture. There is increased echogenicity of t he liver. Gallbladder: There are stones and sludge within the gallbladder with mild gallbladder wall thickening and pericholecystic fluid. Biliary ducts: Intrahepatic bile ducts are non-dilated. Extrahepatic bile duct caliber measures 7 m m. Normal is 6-7 mm or less in diameter, or 10 mm or less post-cholecystectomy. Pancreas: Visualized portions of the pancreas are sonographically normal. Right kidney: Normal in size and echotexture. Right kidney measures 10.2 cm long. No hydronephrosis or nephrolithiasis. No solid masses. No complex renal cystic lesions which require follow-up. IVC: Intrahepatic inferior vena cava is patent. Miscellaneous: No free abdominal fluid. IMPRESSION: Cholelithiasis and sludge with gallbladder wall thickening or pericholecystic fluid. Findings are con sistent with acute cholecystitis. Reviewed by: Clementine Martinez MD, PhD on 02/28/2024 1:23 PM ASHLYN Approved by: Clementine Martinez MD, PhD on 02/28/2024 1:23 PM ASHLYN Station ID: [id number]
[2024-02-28 15:14] VITALS: BP 176/91; O2SAT 95
== END 2024-02-28 15:10 | disposition home or self-care (01) ==
LOC: ED 09:48
DX: K80.10 Calculus of gallbladder with chronic cholecystitis without obstruction (principal)
CPT/HCPCS: 36415; 76705; 80053; 81001; 83690; 85025; 96361; 96374; 96375; 96376; 99284; J1170; 81003; 87086

== ENCOUNTER 2024-02-28 23:39 | Observation (INO) | payer MEDICARE ==
[2024-02-29 00:13] LABS: BASOPHILS % (AUTO) 0.4 %; EOSINOPHILS % (AUTO) 0.1 %; HCT - HEMATOCRIT 38.4 % (37.0-47.0); HGB - HEMOGLOBIN 13.7 g/dL (12.0-16.0); LYMPHOCYTES # (AUTO) 1.1 10^3/uL (1.5-3.5); LYMPHOCYTES % (AUTO) 12.1 %; MEAN CORPUSCULAR HEMOGLOBIN 31.5 pg (27.0-31.0); MEAN CORPUSCULAR HGB CONC 35.7 g/dL (32.0-36.0); MEAN CORPUSCULAR VOLUME 88.3 fL (81.0-99.0); MEAN PLATELET VOLUME 8.6 fL (7.9-10.8); MONOCYTES # (AUTO) 0.6 10^3/uL (0.0-1.0); MONOCYTES % (AUTO) 7.1 %; NEUTROPHILS # (AUTO) 7.2 10^3/uL (1.5-6.6); NEUTROPHILS % (AUTO) 80.1 %; PLT - PLATELET COUNT 185 10^3/uL (130-450); RED BLOOD COUNT 4.35 10^6/uL (4.20-5.40); RED CELL DISTRIBUTION WIDTH 13.2 % (12.0-15.0)
[2024-02-29 00:31] LABS: ALBUMIN 3.9 g/dL (3.2-5.5); ALBUMIN/GLOBULIN RATIO 1.3 (1.0-2.2); BILIRUBIN,TOTAL 1.8 mg/dL (0.2-1.0); CALCIUM 9.5 mg/dL (8.5-10.3); CREATININE 0.7 mg/dL (0.6-1.3); POTASSIUM 3.1 mmol/L (3.5-4.5); TOTAL PROTEIN 6.9 g/dL (6.4-8.9)
[2024-02-29] MEDS: HYDROmorphone 1 MG/ML CARPUJECT IVP STA ×2 (02:47→06:29)
[2024-02-29] MEDS: ONDANSETRON 4 MG/2 ML VIAL IVP STA (02:47)
--- NOTE | 2024-02-29 05:37 | ED Physician Documentation ---
History of Present Illness - Stated complaint Stated Complaint: ABD PX - Chief complaint Chief Complaint: Abd Pain - History obtained from History obtained from: Patient, Family - Additonal information Additional information: The patient returns to the emergency department after presenting yesterday for right upper quadrant pain and being diagnosed with cholecystitis. She had normal labs at that time and was given the option of seeing the surgeon and talk about having surgery done versus going home and waiting. The patient chose to go home, but states that she has not been able to hold any of her pain medications down in her ODT Zofran does not seem to be doing anything for her nausea. She states she is hurting a lot and now has decided she would actually like to get surgery. She denies any fevers or chills. No other new symptoms. No other complaints at this time. PD PAST MEDICAL HISTORY - Past Medical History Past Medical History: Yes Cardiovascular: Hypertension Respiratory: None Neuro: None Endocrine/Autoimmune: Type 2 diabetes, HyPOthyroidism GI: GERD : None HEENT: None Psych: Claustrophobia Musculoskeletal: None Derm: Rosacea - Past Surgical History Past Surgical History: Yes General: Colonoscopy Ortho: Other - Present Medications Home Medications: Ambulatory Orders Medication Instructions Recorded Confirmed Ascorbic Acid [Vitamin C] 1,000 mg PO DAILY 01/02/16 04/26/22 Cholecalciferol (Vitamin D3) 1,000 unit PO DAILY 01/02/16 04/26/22 [Vitamin D] Losartan Potassium 25 mg PO DAILY 01/02/16 04/26/22 Diphenoxylate/Atropine [Lomotil] 1 each PO QID PRN #12 tablet 04/26/22 HYDROcod/ACETAM 5/325 [[place] 5/325] 1 ea PO Q6H PRN #12 tablet 04/26/22 Ondansetron Odt [Zofran] 4 mg TL Q6H PRN #10 tablet 04/26/22 HYDROcod/ACETAM 5/325 [[place] 5/325] 1 ea PO Q6H PRN #18 tablet 02/28/24 Naproxen 500 mg PO BID #15 tab 02/28/24 Ondansetron Odt [Zofran] 4 mg TL Q6H PRN #10 tablet 02/28/24 - Allergies Allergies/Adverse Reactions: Allergies Allergy/AdvReac Type Severity Reaction Status Date / Time Iodine and Iodide Containing Allergy Nausea Verified 02/28/24 23:48 Produc Sulfa (Sulfonamide Allergy Rash Verified 02/28/24 23:48 Antibiotics) - Social History Does the pt smoke?: No Smoking Status: Never smoker Does the pt drink ETOH?: No Does the pt have substance abuse?: No - Immunizations Immunizations are current?: No Immunizations: Other immun not current - POLST Patient has POLST: No PD ED PE NORMAL - Vitals Vital signs reviewed: Yes - General General: Alert and oriented X 3, No acute distress, Well developed/nourished, Other (The patient appears moderately uncomfortable but otherwise in no apparent distress.) - HEENT HEENT: Atraumatic, EOMI, Moist mucous membranes - Neck Neck: Supple, no meningeal sign - Cardiac Cardiac: RRR, No murmur - Respiratory Respiratory: No respiratory distress, Clear bilaterally - Abdomen Abdomen: Soft, Non distended, Other (Moderate right upper quadrant and epigastr ic tenderness, no rebound or guarding.) - Derm Derm: Normal color, Warm and dry, No rash - Extremities Extremities: No deformity, No edema - Neuro Neuro: Normal speech, Other - Psych Psych: Normal mood, Normal affect Results - Vitals Vitals: Vital Signs - 24 hr 02/28/24 02/29/24 02/29/24 23:46 02:49 04:00 Temperature 36.5 C Heart Rate 88 87 77 Respiratory 18 16 16 Rate Blood Pressure 179/77 H 191/77 H 172/88 H O2 Saturation 100 95 94 02/29/24 02/29/24 05:25 07:13 Temperature Heart Rate 79 77 Respiratory 16 18 Rate Blood Pressure 173/88 H 162/82 H O2 Saturation 97 92 Oxygen O2 Source Room air - Labs Labs: Laboratory Tests 02/29/24 02/29/24 00:09 00:09 WBC 9.0 RBC 4.35 Hgb 13.7 Hct 38.4 MCV 88.3 MCH 31.5 H MCHC 35.7 RDW 13.2 Plt Count 185 MPV 8.6 Neut # (Auto) 7.2 H Lymph # (Auto) 1.1 L [place] # (Auto) 0.6 Eos # (Auto) 0.0 Baso # (Auto) 0.0 Absolute Nucleated RBC 0.00 Nucleated RBC % 0.0 Sodium 136 Potassium 3.1 L Chloride 98 L Carbon Dioxide 28 Anion Gap 10.0 BUN 15 Creatinine 0.7 Estimated GFR (MDRD) 82 L Glucose 177 H Calcium 9.5 Total Bilirubin 1.8 H AST 12 ALT 14 Alkaline Phosphatase 46 Total Protein 6.9 Albumin 3.9 Globulin 3.0 Albumin/Globulin Ratio 1.3 Lipase 17 PD Medical Decision Making - ED course Complexity details: reviewed results, re-evaluated patient, considered differential, d/w patient, d/w family, d/w multi site leasing consultant ED course: I treated the patient symptomatically in the emergency department and repeated her labs, which demonstrated a normal white blood cell count, normal LFTs, and a slightly elevated bilirubin at 1.8, which is only slightly higher than the prior level of 1.7. I discussed the case with Dr. Johnson, who is on-call for surgery, and he did agree to the patient to his service. Patient is agreeable to this plan. She has been started on Zosyn here in the emergency department. Departure - Departure Disposition: [facility] DC/Xfer Clinical Impression: Cholecystitis Condition: Serious
[2024-02-29] MEDS: PIPERACILLIN/TAZOBACTAM 3.375 GM in SODIUM CHLORIDE 0.9% MINIBAG 100 ML IV STA (05:59)
[2024-02-29] MEDS ORDERED: SODIUM CHLORIDE FLUSH 0.9% 10 ML SYRINGE IVP PRN ×2 (06:58→15:15)
--- NOTE | 2024-02-29 07:06 | HISTORY & PHYSICAL EXAMINATION ---
HPI - History Obtained From History obtained from: Patient Exam limitations: No limitations - History of Present Illness Pain/Problem Location Description: RUQ abdominal pain Severity at the worst: reports: Moderate Pain Quality: reports: Sharp Context-Pain started w/: reports: Eating Timing: reports: Abrupt onset Duration: reports: Days: (4) Improved with: reports: Nothing PMH/PSH - Past Medical History Cardiovascular: positive: Hypertension Respiratory: positive: None Neuro: positive: None Endocrine/Autoimmune: positive: Type 2 diabetes, HyPOthyroidism GI: positive: GERD : positive: None HEENT: positive: None Psych: positive: Claustrophobia Musculoskeletal: positive: None Derm: positive: Rosacea MRSA Hx?: No - Past Surgical History General: positive: Colonoscopy Ortho: positive: Other Social & Family Hx - Living Situation Living Situation: With spouse/s.o. - Social History Does the pt smoke?: No Smoking Status: Never smoker Does the pt drink ETOH?: No Does the pt have substance abuse?: No - POLST Patient has POLST: No - Family History Family History: Mother: Cancer, Diabetes, Type 1, Father: Alzheimer's Disease, Diabetes, Type 1 Meds/Allgy - Home Medications Home Medications: Ambulatory Orders Medication Instructions Recorded Confirmed Ascorbic Acid [Vitamin C] 1,000 mg PO DAILY 01/02/16 04/26/22 Cholecalciferol (Vitamin D3) 1,000 unit PO DAILY 01/02/16 04/26/22 [Vitamin D] Losartan Potassium 25 mg PO DAILY 01/02/16 04/26/22 Diphenoxylate/Atropine [Lomotil] 1 each PO QID PRN #12 tablet 04/26/22 HYDROcod/ACETAM 5/325 [[place] 5/325] 1 ea PO Q6H PRN #12 tablet 04/26/22 Ondansetron Odt [Zofran] 4 mg TL Q6H PRN #10 tablet 04/26/22 HYDROcod/ACETAM 5/325 [[place] 5/325] 1 ea PO Q6H PRN #18 tablet 02/28/24 Naproxen 500 mg PO BID #15 tab 02/28/24 Ondansetron Odt [Zofran] 4 mg TL Q6H PRN #10 tablet 02/28/24 - Allergies Allergies/Adverse Reactions: Allergies Allergy/AdvReac Type Severity Reaction Status Date / Time Iodine and Iodide Containing Allergy Nausea Verified 02/28/24 23:48 Produc Sulfa (Sulfonamide Allergy Rash Verified 02/28/24 23:48 Antibiotics) Review of Systems - Gastrointestinal Gastrointestinal: reports: Abdominal pain Exam - Vital Signs Vital Signs: Vital Signs x48h Temp Pulse Resp BP Pulse Ox 02/29/24 05:25 79 16 173/88 H 97 02/29/24 04:00 77 16 172/88 H 94 02/29/24 02:49 87 16 191/77 H 95 02/28/24 23:46 97.7 F 88 18 179/77 H 100 - Physical Exam General Appearance: positive: No acute distress, Mild distress Eyes Bilateral: positive: Normal inspection, EOMI ENT: positive: ENT inspection nml, Pharynx nml Neck: positive: Nml inspection, No JVD, Trachea midline Respiratory: positive: Chest non-tender, No respiratory distress, Breath sounds nml Cardiovascular: positive: Regular rate & rhythm, No murmur Peripheral Pulses: positive: 2+ Abdomen: positive: Nml bowel sounds, No distention, Tenderness (RUQ - minimal; No palpable mass) Skin: positive: Color nml, No rash, Warm Extremities: positive: Non-tender, Full ROM, Nml appearance Neurologic/Psychiatric: positive: Oriented x3 Results - Lab Results Fish Bones: 02/29/24 00:09 02/29/24 00:09 Other Lab Results: Lab Results x24hrs 02/29/24 02/29/24 Range/Units 00:09 00:09 WBC 9.0 (4.8-10.8) x10^3/uL RBC 4.35 (4.20-5.40) 10^6/uL Hgb 13.7 (12.0-16.0) g/dL Hct 38.4 (37.0-47.0) % MCV 88.3 (81.0-99.0) fL MCH 31.5 H (27.0-31.0) pg MCHC 35.7 (32.0-36.0) g/dL RDW 13.2 (12.0-15.0) % Plt Count 185 (130-450) 10^3/uL MPV 8.6 (7.9-10.8) fL Neut # (Auto) 7.2 H (1.5-6.6) 10^3/uL Lymph # (Auto) 1.1 L (1.5-3.5) 10^3/uL [place] # (Auto) 0.6 (0.0-1.0) 10^3/uL Eos # (Auto) 0.0 (0.0-0.7) 10^3/uL Baso # (Auto) 0.0 (0.0-0.1) 10^3/uL Absolute Nucleated RBC 0.00 x10^3/uL Nucleated RBC % 0.0 /100WBC Sodium 136 (135-145) mmol/L Potassium 3.1 L (3.5-4.5) mmol/L Chloride 98 L (101-111) mmol/L Carbon Dioxide 28 (21-32) mmol/L Anion Gap 10.0 (6-13) BUN 15 (6-20) mg/dL Creatinine 0.7 (0.6-1.3) mg/dL Estimated GFR (MDRD) 82 L (>89) Glucose 177 H (74-104) mg/dL Calcium 9.5 (8.5-10.3) mg/dL Total Bilirubin 1.8 H (0.2-1.0) mg/dL AST 12 (10-42) IU/L ALT 14 (10-60) IU/L Alkaline Phosphatase 46 (42-121) IU/L Total Protein 6.9 (6.4-8.9) g/dL Albumin 3.9 (3.2-5.5) g/dL Globulin 3.0 (2.1-4.2) g/dL Albumin/Globulin Ratio 1.3 (1.0-2.2) Lipase 17 (11-82) U/L - Diagnostic Imaging Results Diagnostic Imaging Results: positive: See rad report Diagnostic Imaging Results Comments: US RUQ: Cholelithiasis, mild gallbladder wall thickening - All images reviewed by me - PATRICK Impression/Plan - Problem List Problem List: Assessment: 1) Acute cholecystitis - mild. No clinical, lab, or image evidence of choledocholithiasis 2 HTN - treated with HCTZ at home. She tells me that this is her only home medication. Pharmacy to do med rec. Plan: 1) Admission for IV fluids, analgesics, and antibiotics 2) NPO 3) Laparoscopic cholecystectomy, possible open cholecystectomy either later today or tomorrow <><><><><> Consent: Aditi has been counseled for the procedure, it's indications, risks, benefits and expected outcome as well as alternative therapies. We specifically discussed risks associated with anesthesia, bleeding, infection, injury to surrounding structures which may require additional surgery, and the possible need for conversion to an open procedure. We also discussed the possible need for a blood transfusion with its risks and benefits. Aditi understands, agrees, and consents to the proposed operative strategy and requests that we proceed with the procedure as outlined in our discussion. Boaz Johnson MD, [facility] General Surgery Service
[2024-02-29] MEDS: HEPARIN 5,000 UNIT/ML VIAL SUBQ SCH (09:35)
[2024-02-29] MEDS: LACTATED RINGERS 1,000 ML IV SCH (10:01)
[2024-02-29] MEDS: HYDROmorphone 0.5 MG/0.5 ML SYRINGE IVP PRN (10:02)
[2024-02-29] MEDS: SODIUM CHLORIDE FLUSH 0.9% 10 ML SYRINGE IVP SCH ×2 (10:06→17:03)
[2024-02-29] MEDS ORDERED: BUPIVACAINE 0.25% PF 30 ML VIAL ONE (11:08)
[2024-02-29] MEDS ORDERED: LIDOCAINE 1%-EPI 1:100000 20 ML MDV ONE (11:08)
[2024-02-29] MEDS ORDERED: ATROPINE ABBOJECT 1 MG/10 ML SYRINGE IVP PRN (12:06)
[2024-02-29] MEDS ORDERED: HYDROmorphone 0.5 MG/0.5 ML SYRINGE IVP PRN (12:06)
[2024-02-29] MEDS ORDERED: ePHEDrine 50 MG/ML VIAL IVP PRN (12:06)
[2024-02-29] MEDS ORDERED: METOCLOPRAMIDE 10 MG/2 ML VIAL IVP PRN (12:06)
[2024-02-29] MEDS ORDERED: NALOXONE 0.4 MG/ML VIAL IVP PRN (12:06)
[2024-02-29] MEDS ORDERED: ONDANSETRON 4 MG/2 ML VIAL IVP PRN (12:06)
[2024-02-29] MEDS ORDERED: fentaNYL 100 MCG/2 ML VIAL IVP PRN (12:06)
[2024-02-29] MEDS ORDERED: MORPHINE 2 MG/ML CARPUJECT IVP PRN (12:06)
--- NOTE | 2024-02-29 12:06 | ANESTHESIA ---
Pre-Anesthesia VS, & Labs - Diagnosis CHOLECYSTITIS - Procedure LAP SAKSHI Vital Signs: Temp Pulse Resp BP Pulse Ox O2 Flow Rate 36.5 C 77 18 203/95 H 92 02/28/24 23:46 02/29/24 07:13 02/29/24 07:13 02/29/24 09:00 02/29/24 07:13 Height: 5 ft 4 in Weight (kg): 94.801 kg Body Mass Index: 35.9 BMI Classification: Obese - NPO >8 hours Last Fluid Intake: ICE CHIPS - Is Patient ?: Not Applicable - Lab Results Current Lab Results: Laboratory Tests 02/29/24 00:09: Sodium 136, Potassium 3.1 L, Chloride 98 L, Carbon Dioxide 28, Anion Gap 10.0, BUN 15, Creatinine 0.7, Estimated GFR (MDRD) 82 L, Glucose 177 H , Calcium 9.5, Total Bilirubin 1.8 H, AST 12, ALT 14, Alkaline Phosphatase 46, Total Protein 6.9, Albumin 3.9, Globulin 3.0, Albumin/Globulin Ratio 1.3, Lipase 17 02/29/24 00:09: WBC 9.0, RBC 4.35, Hgb 13.7, Hct 38.4, MCV 88.3, MCH 31.5 H, MCHC 35.7, RDW 13.2, Plt Count 185, MPV 8.6, Neut # (Auto) 7.2 H, Lymph # (Auto) 1.1 L, Ross # (Auto) 0.6, Eos # (Auto) 0.0, Baso # (Auto) 0.0, Absolute Nucleated RBC 0.00, Nucleated RBC % 0.0 Lab results reviewed: Yes Fish Bones: 02/29/24 00:09 02/29/24 00:09 Home Medications and Allergies Active Medications Heparin Sodium (Porcine) (Heparin 5,000 Unit/Ml Vial) 5,000 unit SUBQ BID DENISSE Last Admin: 02/29/24 09:35 Dose: Not Given Hydromorphone HCl (Hydromorphone 0.5 Mg/0.5 Ml Syringe) 0.5 mg IVP Q2H PRN PRN Reason: Severe Pain (Level 7-10) Last Admin: 02/29/24 10:02 Dose: 0.5 mg Lactated Ringer's (Lr) 1,000 mls @ 100 mls/hr IV .Q10H [facility] Last Admin: 02/29/24 10:01 Dose: 100 mls/hr Piperacillin Sod/Tazobactam (Sod 3.375 gm/ Sodium Chloride) 100 mls @ 200 mls/hr IV Q6H [facility] Ketorolac Tromethamine (Ketorolac 15 Mg/Ml Vial) 15 mg IVP Q6HR [facility] Stop: 03/01/24 12:01 Sodium Chloride (Sodium Chloride Flush 0.9% 10 Ml Syringe) 10 ml IVP 0100,0900,1700 [facility] Last Admin: 02/29/24 10:06 Dose: 10 ml Sodium Chloride (Sodium Chloride Flush 0.9% 10 Ml Syringe) 10 ml IVP PRN PRN PRN Reason: NEEDED PER PROVIDER ORDERS Ascorbic Acid [Vitamin C] 1,000 mg PO DAILY 01/02/16 Cholecalciferol (Vitamin D3) [Vitamin D] 1,000 unit PO DAILY 01/02/16 Losartan Potassium 25 mg PO DAILY 01/02/16 Allergies/Adverse Reactions: Allergies Allergy/AdvReac Type Severity Reaction Status Date / Time Iodine and Iodide Containing Allergy Nausea Verified 02/28/24 23:48 Produc Sulfa (Sulfonamide Allergy Rash Verified 02/28/24 23:48 Antibiotics) Anes History & Medical History - Anesthetic History Anesthesia Complications: reports: No previous complications Family history of Anesthesia Complications: Denies - Medical History Cardiovascular: reports: Hypertension Pulmonary: reports: None Gastrointestinal: reports: GERD Urinary: reports: None Neuro: reports: None Musculoskeletal: reports: None Endocrine/Autoimmune: reports: Type 2 diabetes, HyPOthyroidism Skin: reports: Rosacea Smoking Status: Never smoker Psychosocial: reports: No issues indicated - Surgical History General: reports: Colonoscopy Orthopedic: reports: Other Results - EKG Results EKG Comparison: Reviewed EKG Exam General: Alert, Oriented x3 Dental: WNL Mouth Openin Fingerbreadth Neck Mobility: Reduced Mallampati classification: II Thyromental Distance: 4-6 cm Respiratory: Lungs clear Cardiovascular: Regular rate Plan Anesthesia Type: General Consent for Procedure(s) Verified and Reviewed: Yes Code Status: Attempt Resuscitation ASA classification: 2-Mild systemic disease Is this case an emergency?: No
--- NOTE | 2024-02-29 12:32 | PHARMACY PROGRESS NOTE ---
- Best Possible Medication History Admit Date and Time: 02/29/24 0658 Processed by: Pharmacy Medications reviewed in ED?: No Medication History completed: Yes Patient Interview: Completed Secondary Source(s): Insurance records ([employer] - Last dispensed June 2023. Patient reports still taking.) As the person ultimately responsible for medication therapy, providers are able to order a medication from an existing home medication list in [facility] via the "Reconcile Routine" prior to Confirmation of that medication by application support administrator. Such practice is discouraged except when the physician, in their clinical judgment, deems that a medical need exists for a medication without regard to previous use.
[2024-02-29] MEDS ORDERED: ROCURONIUM 50 MG/5 ML VIAL ONE ×2 (12:33→14:09)
[2024-02-29] MEDS ORDERED: PROPOFOL 200 MG/20 ML VIAL IVP ONE (12:33)
[2024-02-29] MEDS ORDERED: LIDOCAINE-PF 2% 10 ML AMP SUBQ ONE (12:33)
[2024-02-29] MEDS ORDERED: fentaNYL 100 MCG/2 ML VIAL ONE (12:34)
[2024-02-29] MEDS ORDERED: PHENYLEPHRINE HCL 0.5 MG/5 ML AMPULE ONE (12:34)
[2024-02-29] MEDS ORDERED: ePHEDrine 50 MG/ML VIAL IVP ONE (12:34)
[2024-02-29] MEDS: KETOROLAC 15 MG/ML VIAL IVP SCH (12:55)
[2024-02-29] MEDS ORDERED: LACTATED RINGERS 1,000 ML IV SCH (13:00)
[2024-02-29] MEDS ORDERED: ONDANSETRON 4 MG/2 ML VIAL ONE (13:47)
[2024-02-29] MEDS ORDERED: DEXAMETHASONE 4 MG/ML VIAL ONE (13:47)
[2024-02-29] MEDS ORDERED: iohexoL-240 10 ML VIAL IVP ONE (14:11)
[2024-02-29] MEDS: iohexoL-240 10 ML VIAL IVP ONE (14:30)
[2024-02-29] MEDS: LIDOCAINE 1%-EPI 1:100000 50 ML VIAL SUBQ ONE (14:51)
[2024-02-29] MEDS: BUPIVACAINE 0.25% PF 30 ML VIAL SUBQ ONE (14:51)
[2024-02-29] MEDS ORDERED: SUGAMMADEX 200 MG/2 ML VIAL IVP ONE (14:59)
[2024-02-29] MEDS: PIPERACILLIN/TAZOBACTAM 3.375 GM in SODIUM CHLORIDE 0.9% MINIBAG 100 ML IV SCH (15:29)
[2024-02-29] MEDS: LACTATED RINGERS 1,000 ML IV ONE (15:29)
--- NOTE | 2024-02-29 15:40 | OPERATIVE REPORT ---
Operative Report - General Admit Date: 02/29/24 - Other Other Information/Narrative: PROCEDURE DATE: 02/29/2024 PREOPERATIVE DIAGNOSIS: Acute cholecystitis. POSTOPERATIVE DIAGNOSIS: Acute cholecystitis due to dystic duct obstruction NAME OF PROCEDURE: Laparoscopic cholecystectomy, Intra-operative cholangiogram SURGEON: Boaz Johnson MD, FACS [employer] DEPARTMENT: [employer] ANESTHESIA: General endotracheal ESTIMATED BLOOD LOSS: 5 mL DRAINS: Stephen drain in sub-hepatic space SPECIMEN: Gallbladder/Stones/Bile cultures COMPLICATIONS: None DESCRIPTION OF OPERATIVE FINDINGS: The gallbladder was markedly distended with clear evidence of advanced cholecystitis. The cystic duct was dilated to ~ 1 cm for 2 cm below the gallbladder wall. The gallbladder contained purulent bile and tiny stones/sludge. DESCRIPTION OF OPERATION FOLLOWS: After consent for the procedure was obtained, the patient was brought to the operating room where in the supine position general endotracheal anesthesia was administered. The abdomen was prepped with alcohol-free chloroprep and draped in a sterile fashion after a surgical time-out was performed indicating the patient and the procedure to be performed. Pneumoperitoneum was achieved through a subumbilical incision using a Satish cannula and an open technique. A 10 mm non-cutting laparoscopic port was placed in the sub-xiphoid region and two 5 mm noncutting ports were placed in the right upper quadrant; one in the mid-clavicular line and one in the anterior axillary line. Each of the port sites were infiltrated with 1% Lidocaine with epinephrine in a 50/50 mix with 1/4% Marcaine mixture prior making the incisions . The patient was placed in the steep reverse Trendelenburg position and rolled to the left. Inspection of the right upper quadrant revealed the above noted findings. The gallbladder was grasped on the fundus and retracted superiorly and anteriorly. The neck was grasped and retracted laterally. The cystic duct was identified as it coursed from the gallbladder toward the common duct. The cysti c artery was similarly identified. The critical view was achieved once the liver bed was visualized behind the cystic artery and cystic duct. The cystic duct was markedly dilated below it's junction with the gallbladder wall. It was surrounded by dense fibroinflammatory tissue which obscured the anatomy. I was quite certain that this was not the common bile duct but did not want to transect and clip the duct leaving infected bile and stones in a dilated cystic duct remnant. I decided to perform a limited cholangiogram to determine where the cystic duct tapered to normal. The cystic duct was partially clipped near the gallbladder wall and a cystic ductotomy was made adjacent to the gallbladder. Infected bile/stones exuded from the inferior (proximal) aspect of the cystic duct. A cholangiocatheter was placed via a 5th port into the cystic duct and secured with a cholangioclamp but the clamp could not prevent retrograde flow into the gallbladder due to the enlarged diameter of the cystic duct. Isovue was used to obtain a cholangiogram which revealed mainly retrograde flow into the gallbladder and limited flow distally. Interrogation of the CBD was not achieved which was expected. The images indicated that the cystic duct was completely obstructed somewhat more distal to it's junction with the gallbladder, just beyond the most proximal area of dilation, and that the CBD was not involved. This gave me the confidence to continue my dissection of the cystic duct inferiorly towards the CBD. The catheter was removed and traction was placed on the gallbladder as the dilated cystic duct was dissected distally to an area where it regained it's normal caliber. I was well away from the CBD and triply hemo-clipped the cystic duct proximal to its obstruction and away from the CBD. The cystic artery was clipped proximally and distally and transected. The gallbladder was then removed from the liver bed using electrocautery and brought out through the subxiphoid port using an endo-catch device. Reinspection of the right upper quadrant revealed no evidence of bleeding or bile leakage from the previous dissection site. The right upper quadrant was irrigated with warm sterile saline. The irrigant was aspirated. A Stephen drain was placed into the sub-hepatic space and brought out the lateral port site and secured to the skin with a 3-0 nylon suture. A search was made for sponges, packs, instruments, and needles. None were found. The sponge, pack, instrument, and needle counts were relayed to me as being correct. The sub-xiphoid port site fascia was closed with a 2-0 Vicryl under direct vision using an endo-close device. The pneumoperitoneum was released. The laparoscopic port sleeves were removed and there was no evidence of bleeding from the laparoscopic port sleeve sites upon release of the pneumoperitoneum. A search was made for sponges, packs, instruments, and needles. None were found. The sponge, pack, instrument, and needle counts were relayed to me as being correct. The Satish canula was removed and the patient was placed into the supine position. The subumbilical incision was closed with 0 Vicryl for the linea alba. The skin was closed with interrupted 4-0 Vicryl in a subcuticular fashion with Steri-Strips to reinforce the epidermis. Dressings were placed. The patient tolerated the procedure well and was brought to the Recovery Room with stable signs.
[2024-02-29] MEDS: ACETAMINOPHEN 325 MG TABLET PO SCH (17:03)
--- NOTE | 2024-02-29 17:10 | ANESTHESIA POST OP EVALUATION ---
Anesthesia Post Eval - Post Anesthesia Eval Vitals: Last Vital Signs Temp 36.6 C 02/29/24 16:00 Pulse 90 02/29/24 16:58 Resp 16 02/29/24 16:58 BP 142/84 H 02/29/24 16:58 Pulse Ox 93 02/29/24 16:58 O2 Flow Rate 2 02/29/24 16:58 CV Function Including HR & BP: Stable Pain Control: Satisfactory Nausea & Vomiting: Negative Mental Status: Baseline Respiratory Status: Airway Patent Hydration Status: Satisfactory Anesthesia Complications: None
--- NOTE | 2024-02-29 17:58 | XRAY Report ---
PROCEDURE: OR C-Arm Procedure INDICATIONS: INTRAOPERATIVE CHOLANGIOGRAM FLUORO TIME: 000.2 TECHNIQUE: Single intraoperative image was acquired. COMPARISON: Ultrasound abdomen 02/28/2024 FINDINGS: Intraoperative cholangiogram. IMPRESSION: Intraoperative cholangiogram. Please see surgical report for further details. Reviewed by: Ela Arzate MD on 02/29/2024 5:57 PM PDT Approved by: Ela Arzate MD on 02/29/2024 5:57 PM PDT Station ID: [id number]
[2024-03-01 05:38] LABS: BASOPHILS % (AUTO) 0.2 %; EOSINOPHILS % (AUTO) 0.1 %; HGB - HEMOGLOBIN 11.8 g/dL (12.0-16.0); LYMPHOCYTES # (AUTO) 1.2 10^3/uL (1.5-3.5); LYMPHOCYTES % (AUTO) 13.5 %; MEAN CORPUSCULAR HEMOGLOBIN 30.6 pg (27.0-31.0); MEAN CORPUSCULAR HGB CONC 33.7 g/dL (32.0-36.0); MEAN CORPUSCULAR VOLUME 90.7 fL (81.0-99.0); MEAN PLATELET VOLUME 9.1 fL (7.9-10.8); MONOCYTES # (AUTO) 0.7 10^3/uL (0.0-1.0); MONOCYTES % (AUTO) 7.8 %; NEUTROPHILS # (AUTO) 6.7 10^3/uL (1.5-6.6); NEUTROPHILS % (AUTO) 77.9 %; PLT - PLATELET COUNT 168 10^3/uL (130-450); RED BLOOD COUNT 3.86 10^6/uL (4.20-5.40); RED CELL DISTRIBUTION WIDTH 13.2 % (12.0-15.0); WHITE BLOOD COUNT 8.5 x10^3/uL (4.8-10.8)
[2024-03-01 05:52] LABS: ALBUMIN 3.3 g/dL (3.2-5.5); ALBUMIN/GLOBULIN RATIO 1.1 (1.0-2.2); BILIRUBIN,TOTAL 1.7 mg/dL (0.2-1.0); POTASSIUM 3.1 mmol/L (3.5-4.5); TOTAL PROTEIN 6.3 g/dL (6.4-8.9)
--- NOTE | 2024-03-01 06:45 | PROVIDER PROGRESS NOTE ---
Progress Note General Surgery Progress Note Hospital Day 2 - Acute cholecystitis POD # 1, Laparoscopic cholecystectomy Code Status: Full ASSESSMENT: 1) No immediate post-op complications; Progressing well PLAN: 1) Saline lock IV; Remove Stephen drain after lunch and discharge to home this afternoon; Continue antibiotics for 3 days post-discharge <><><><><> PERTINENT INTERVAL ISSUES: None S: Comfortable; Pre-op pain gone; Mild port site discomfort controlled with oral meds OBJECTIVE: I/O: 50 ml drain output - serosanguinous VS: WNL EXAMINATION: MENTAL STATUS: AAO; Comfortable EYES: Pupils equal, round and reactive to light, sclera anicteric, EARS, NOSE, MOUTH, THROAT: Normal hearing, Oral mucous membranes moist and without lesions; NECK: No crepitus, lymphadenopathy, or thyromegaly LUNGS: Clear to auscultation without wheezing; No use of accessory muscles to breathe CARDIOVASCULAR: Heart-NSR without murmurs; ABD: Soft, non-tender, Port sites clean and dry; + BS; Drain - serosanguinous EXTREMITIES: No clubbing, cyanosis, infections SKIN: Anicteric; No rashes, lesions, ulcerations LABS: K 3.1; T. Bili 1.6 - all other labs reviewed and normal CULTURES: Bile - pending IMAGING: N/A ANTIMICROBIALS: Zosyn PAIN CONTROL: Dilaudid IV prn, Oxycodone PO prn, Ketorolac IV, Acetaminophen VTEP: Chemical: Heparin, 5,000 units SQ Q 12 hrs Mechanical: SCD Boaz Johnson MD, FACS General Surgery Service
[2024-03-01] MEDS: hydroCHLOROthiazide 25 MG TABLET PO SCH (08:30)
--- NOTE | 2024-03-01 12:42 | DISCHARGE SUMMARY ---
"Discharge Summary Admit Date: 02/29/24 Discharge Date: 03/01/24 Discharging Provider: Alex Code Status: Attempt Resuscitation Condition at Discharge: Good Discharge Disposition: 01 Home, Self Care - DIAGNOSES Admission Diagnoses: Acute cholecystitis Discharge Diagnoses with Status of Each Condition: Acute cholecystitis - resolved - s/p laparoscopic cholecystectomy - HPI History of Present Illness: - History of Present Illness Pain/Problem Location Description: RUQ abdominal pain Severity at the worst: reports: Moderate Pain Quality: reports: Sharp Context-Pain started w/: reports: Eating Timing: reports: Abrupt onset Duration: reports: Days: (4) Improved with: reports: Nothing - CONSULTS | PROCEDURES Consultations: None - HOSPITAL COURSE Hospital Course: Uncomplicated. At the time of discharge she was tolerating a general diet, a mbulatory, her port sites were without bleeding or infection, her Stephen drain was removed, and her pain was under control with oral non-narcotic medication. - ALLERGIES Allergies/Adverse Reactions: Allergies Allergy/AdvReac Type Severity Reaction Status Date / Time Iodine and Iodide Containing Allergy Nausea Verified 02/28/24 23:48 Produc Sulfa (Sulfonamide Allergy Rash Verified 02/28/24 23:48 Antibiotics) - MEDICATIONS Home Medications: Ambulatory Orders Medication Instructions Recorded Confirmed hydroCHLOROthiazide 50 mg PO DAILY 02/29/24 02/29/24 [Hydrochlorothiazide] Home Medications Other | Comments: Tylenol 650 mg orally 4 x a day as needed Ibuprofen 400 mg orally 3 x a day with meals as needed Augmentin 875 mg orally 2 x a day x 3 days - PHYSICAL EXAM AT DISCHARGE General Appearance: positive: No acute distress, Alert Eyes Bilateral: positive: Normal inspection ENT: positive: ENT inspection nml, Pharynx nml Neck: positive: Nml inspection Respiratory: positive: Chest non-tender, Breath sounds nml Cardiovascular: positive: Regular rate & rhythm Peripheral Pulses: positive: 2+ Abdomen: positive: Non-tender, Nml bowel sounds, Other (Port sites clean and dry; Stephen drain removed) Skin: positive: Warm Extremities: positive: Non-tender, Full ROM, Nml appearance Neurologic/Psychiatric: positive: Oriented x3 - LABS Result Diagrams: 03/01/24 05:28 03/01/24 05:28 - DIAGNOSTIC IMAGING Diagnostic Imaging Results: See rad report - QUALITY (Female Hip Fx Only) Was patient sent home on osteoporosis medication?: No - FOLLOW UP Follow Up: The surgery clinic will contact her to make arrangements for a post-op follolw- up appointment at a mutually convenient date and time. - TIME SPENT Time Spent in Discharge (Minutes): 30"
--- NOTE | 2024-03-01 12:42 | PROVIDER PROGRESS NOTE ---
Progress Note General Surgery Progress Note Aditi is progressing well. She ate breakfast and lunch without difficulty. Her pain is controlled with oral non-narcotic medication. Her Stephen drain is pulling minimal serosanguinous fluid and is removed by me. She is ready for discharge. Margarito Johnson MD, [facility] General Surgery Service
--- NOTE | 2024-03-01 12:52 | Discharge Plan ---
Discharge Plan Problem Reviewed?: Yes Disposition: Home, Self Care Condition: Good Prescriptions: Amox/Clav 875/125 [Augmentin 875/125 Tab] 1 tablet PO Q12H 6 Days #6 tablet Ibuprofen [Motrin] 400 mg PO TIDWM PRN #60 tablet PRN Reason: Moderate Pain (Level 4-6) Acetaminophen [Tylenol] 650 mg PO Q6H #60 tab Diet: Regular Activity Restrictions: Activity as Tolerated Shower Restrictions: No (Begin 03/02/24) Driving Restrictions: No Assistance Devices: Wheelchair Instruction Topics: Cholecystectomy Laparoscopic Dc Additional Instructions or Follow Up instructions: The surgery clinic will contact you tomorrow to make an appointment for you in 10-14 days Be active but remember, if it hurts to do, don't do it. For questions or concerns, call the Surgery Clinic ([phone]) or the hospital ([phone]). Margarito Johnson MD, FACS General Surgery Service No Smoking: If you smoke, Please STOP! Call for help.
[2024-03-01 13:10] VITALS: BP 160/76; O2SAT 92
== END 2024-03-01 14:05 | disposition home or self-care (01) ==
LOC: ED 23:39 → SDS 02-29 06:10 → MS2 02-29 06:58 → ED 02-29 09:11
PROVIDERS: ADMIT Surgery; ATTEND Surgery
PROC: 0FT44ZZ Resection of Gallbladder, Percutaneous Endoscopic Approach (ICD-10-PCS; principal; 2024-02-29 13:00)
DX: K80.00 Calculus of gallbladder with acute cholecystitis without obstruction (principal); I10 Essential (primary) hypertension; E11.9 Type 2 diabetes mellitus without complications; E66.9 Obesity, unspecified; Z68.35 Body mass index [BMI] 35.0-35.9, adult
CPT/HCPCS: 36415; 47563; 80053; 83690; 85025; 87070; 87075; 96365; 96375; 96376; A9270; J1170; J2372; J3490; J7120; Q9966

== ENCOUNTER 2024-06-28 08:57 | Outpatient (CLI) | payer MEDICARE ==
[2024-06-28 11:59] LABS: BASOPHILS # (AUTO) 0.1 10^3/uL (0.0-0.1); BASOPHILS % (AUTO) 1.3 %; EOSINOPHILS # (AUTO) 0.1 10^3/uL (0.0-0.7); EOSINOPHILS % (AUTO) 2.8 %; HCT - HEMATOCRIT 41.6 % (37.0-47.0); HGB - HEMOGLOBIN 14.1 g/dL (12.0-16.0); LYMPHOCYTES # (AUTO) 1.5 10^3/uL (1.5-3.5); LYMPHOCYTES % (AUTO) 31.3 %; MEAN CORPUSCULAR HEMOGLOBIN 31.5 pg (27.0-31.0); MEAN CORPUSCULAR HGB CONC 33.9 g/dL (32.0-36.0); MEAN CORPUSCULAR VOLUME 93.1 fL (81.0-99.0); MEAN PLATELET VOLUME 9.9 fL (7.9-10.8); MONOCYTES # (AUTO) 0.3 10^3/uL (0.0-1.0); MONOCYTES % (AUTO) 7.3 %; NEUTROPHILS # (AUTO) 2.7 10^3/uL (1.5-6.6); NEUTROPHILS % (AUTO) 57.1 %; PLT - PLATELET COUNT 230 10^3/uL (130-450); RED BLOOD COUNT 4.47 10^6/uL (4.20-5.40); RED CELL DISTRIBUTION WIDTH 13.4 % (12.0-15.0); WHITE BLOOD COUNT 4.7 x10^3/uL (4.8-10.8)
[2024-06-28 12:08] LABS: MICROALBUM/CREATININE RATIO,UR 10.5 ug/mg (<30.0); MICROALBUMIN,URINE 2.1 mg/dL
[2024-06-28 12:13] LABS: ALBUMIN 4.2 g/dL (3.2-5.5); ALBUMIN/GLOBULIN RATIO 1.5 (1.0-2.2); ALKALINE PHOSPHATASE 40 IU/L (42-121); ALT ALANINE AMINOTRANSFERASE 12 IU/L (10-60); AST ASPARTATE AMINOTRANSFERASE 13 IU/L (10-42); BILIRUBIN,TOTAL 1.1 mg/dL (0.2-1.0); BUN - BLOOD UREA NITROGEN 26 mg/dL (6-20); CALCIUM 10.1 mg/dL (8.5-10.3); CARBON DIOXIDE - CO2 29 mmol/L (21-32); CHLORIDE 101 mmol/L (101-111); CHOL/HDL RATIO 4.3 (<4.4); CHOLESTEROL 377 mg/dL; CREATININE 0.9 mg/dL (0.6-1.3); GFR - MDRD 61 (>89); GLUCOSE 129 mg/dL (74-104); HDL CHOLESTEROL 88 mg/dL; LDL CHOLESTEROL,CALCULATED 274 mg/dL; LDL/HDL RATIO 3.1 (<4.4); POTASSIUM 3.5 mmol/L (3.5-4.5); SODIUM 138 mmol/L (135-145); TRIGLYCERIDES 77 mg/dL; VLDL CHOLESTEROL 15 mg/dL
[2024-06-28 12:18] LABS: ESTIMATED AVERAGE GLUCOSE 126 mg/dL (70-100)
[2024-06-28 12:31] LABS: THYROID STIMULATING HORMONE 4.63 uIU/mL (0.34-5.60)
== END 2024-06-28 08:58 | disposition home or self-care (01) ==
LOC: LAB.N 08:57
PROVIDERS: ATTEND Physician Assistant
DX: I10 Essential (primary) hypertension (principal); E78.5 Hyperlipidemia, unspecified; E11.9 Type 2 diabetes mellitus without complications; E03.9 Hypothyroidism, unspecified
CPT/HCPCS: 36415; 80053; 80061; 82043; 82570; 83036; 83721; 84443; 85025